=== PATIENT | female | born 1980 | race Asian ===

== ENCOUNTER 2019-08-28 06:08 | Day surgery (SDC) | payer OTHER ==
[2019-08-26 10:24] VITALS: BMI 23.6
[2019-08-28] MEDS ORDERED: LIDOCAINE HCL 1%, 10 MG/ML (20ML VIAL) ONE (07:20)
[2019-08-28] MEDS ORDERED: EPINEPHrine 1:1,000 1 MG/1 ML - 30ML VIAL (INJECTION) ONE (07:20)
[2019-08-28] MEDS ORDERED: BACITRACIN 15 GM TUBE TOPICAL OINTMENT ONE ×3 (07:22→11:39)
[2019-08-28] MEDS ORDERED: EPINEPHrine/PF 1 MG/1 ML (1:1,000) AMPULE ONE (07:34)
[2019-08-28] MEDS ORDERED: MIDAZOLAM HCL 2 MG/2 ML SINGLE DOSE VIAL ONE (08:51)
[2019-08-28] MEDS ORDERED: fentaNYL CITRATE 250 MCG/5 ML VIAL ONE (09:10)
[2019-08-28] MEDS ORDERED: PROPOFOL 20 ML ONE ×3 (09:10)
[2019-08-28] MEDS ORDERED: SUCCINYLCHOLINE CHLORIDE 200 MG/10 ML SYRINGE ONE (09:12)
[2019-08-28] MEDS ORDERED: ONDANSETRON 4 MG/2 ML VIAL ONE (09:30)
[2019-08-28] MEDS ORDERED: LIDOCAINE HCL 2% JELLY (5 ML/TUBE) ONE (09:30)
[2019-08-28] MEDS ORDERED: ceFAZolin SODIUM 1 GM VIAL ONE (09:30)
[2019-08-28] MEDS ORDERED: KETOROLAC TROMETHAMINE 30 MG/1 ML VIAL ONE (09:30)
[2019-08-28] MEDS ORDERED: DEXAMETHASONE SOD PHOSPHATE 4 MG/1 ML VIAL ONE (09:30)
[2019-08-28] MEDS ORDERED: LIDOCAINE HCL/PF 2% SDV 5ML VIAL ONE (09:30)
[2019-08-28] MEDS ORDERED: BACITRACIN 15 GM TUBE TOPICAL OINTMENT TP ONE (10:04)
[2019-08-28] MEDS ORDERED: ONDANSETRON 4 MG/2 ML VIAL IVPUSH PRN (14:32)
[2019-08-28] MEDS ORDERED: oxyCODONE HCL 5 MG TABLET PO PRN ×2 (14:32)
[2019-08-28] MEDS ORDERED: PROMETHAZINE HCL 25 MG/1 ML VIAL IVPUSH PRN (14:32)
[2019-08-28] MEDS ORDERED: oxyCODONE HCL 5 MG TABLET ONE (15:31)
[2019-08-28 19:26] VITALS: BP 119/70; PULSE 73; TEMP 98
== END 2019-08-28 19:26 | disposition home or self-care (01) ==
LOC: FASUSAT 06:08
PROVIDERS: ATTEND Surgery
PROC: 0J0F3ZZ Alteration of Left Upper Arm Subcutaneous Tissue and Fascia, Percutaneous Approach (ICD-10-PCS; 2019-08-28)
PROC: 0J0D3ZZ Alteration of Right Upper Arm Subcutaneous Tissue and Fascia, Percutaneous Approach (ICD-10-PCS; 2019-08-28)
PROC: 0J073ZZ Alteration of Back Subcutaneous Tissue and Fascia, Percutaneous Approach (ICD-10-PCS; 2019-08-28)
PROC: 0J083ZZ Alteration of Abdomen Subcutaneous Tissue and Fascia, Percutaneous Approach (ICD-10-PCS; principal; 2019-08-28 08:00)
DX: Z41.1 Encounter for cosmetic surgery (principal)
CPT/HCPCS: 81025; 94760